=== PATIENT | female | born 1990 | race Two or more races ===

== ENCOUNTER 2017-12-02 19:19 | Emergency (ER) | payer MEDICAID, OTHER, SELFPAY ==
[~2017-12-02] VITALS: Ht 154.9 cm; Wt 57.7 kg
[2017-12-02] MEDS ORDERED: SODIUM CHLORIDE FLUSH 10ML SYR IVF ONE (20:00)
[2017-12-02] MEDS ORDERED: OMNIPAQUE 350 MG/ML, 100ML BOTTLE ONE (21:09)
[2017-12-02 21:19] VITALS: BP 124/87
== END 2017-12-02 22:33 | disposition home or self-care (01) ==
LOC: ED 22:05
DX: K09.9 Cyst of oral region, unspecified (principal)
CPT/HCPCS: 70491; 99284; Q9967